=== PATIENT | male | born 1985 | race African-American/Black ===

== ENCOUNTER 2018-08-19 19:01 | Emergency (ER) | payer OTHER ==
[2018-08-19] MEDS ORDERED: CLINDAMYCIN 900 MG/D5W RTU 900 MG/50 ML RTUPB IV ONE (21:02)
[2018-08-19] MEDS ORDERED: DEXAMETHASONE SOD PHOS INJ 10 MG/1 ML VIAL IV ONE (21:04)
--- NOTE | 2018-08-19 21:16 | ER Document Report ---
ED General - General Chief Complaint: Sore Throat Stated Complaint: SORE THROAT Time Seen by Provider: 08/19/18 20:48 Primary Care Provider: ALEX,JUNIOR [Primary Care Provider] - Follow up as needed Information source: Patient TRAVEL OUTSIDE OF THE [place] IN LAST 30 DAYS: No - HPI Patient complains to provider of: SORE THROAT Onset: Yesterday Onset/Duration: Sudden Quality of pain: Fullness, Throbbing Severity: Moderate Associated symptoms: Chills, Fever Exacerbated by: Denies Relieved by: Denies Similar symptoms previously: No Recently seen / treated by doctor: No Notes: 33-year-old -[place] male coming in today with swollen tonsils. Symptoms since yesterday. Having to spit his oral secretions into a emesis bag. - Related Data Allergies/Adverse Reactions: No Known Allergies Allergy (Verified 02/10/16 01:45) Past Medical History - General Information source: Patient - Social History Smoking Status: Never Smoker Frequency of alcohol use: Rare Drug Abuse: Marijuana Family History: Reviewed & Not Pertinent Patient has suicidal ideation: No Patient has homicidal ideation: No Renal/ Medical History: Denies: Hx Peritoneal Dialysis - Immunizations Hx Diphtheria, Pertussis, Tetanus Vaccination: Yes Review of Systems - Review of Systems Notes: Constitutional: No fevers. No chills. EENT: Hurts to swallow, swollen tonsils Cardiovascular: No chest pain. No palpitations. Respiratory: No cough. No shortness of breath. No respiratory distress. Gastrointestinal: No abdominal pain. No nausea, vomiting, or diarrhea. Genitourinary: Atraumatic. No lesions. No pain. No discharge. Musculoskeletal: Atraumatic. No swelling. No deformities. Skin: No rash or lesions. Lymphatic: No swollen lymph nodes. Neurologic: No headache. No syncope. Psychiatric: No suicidal or homicidal ideation. Physical Exam - Vital signs Vitals: Temp Pulse Resp BP Pulse Ox 98.9 F 86 16 138/84 H 97 08/19/18 19:29 08/19/18 19:29 08/19/18 19:29 08/19/18 19:29 08/19/18 19:29 - Notes Notes: General: Well-developed, well-nourished. In no acute distress. Non-toxic appearing. Cardiac: Well-perfused. Regular rate and rhythm. No murmurs, rubs, or gallops. Pulmonary: No respiratory distress. No cyanosis. Bilateral lung fiels are clear to auscultation. Abdominal: Non-distended. Non-rigid. Bowels sounds are present in all four quadrants. No guarding or rebound. HEENT: Head is atraumatic. Conjunctivae not reddened. No tearing. PERRL. EOMI. Orbits atraumatic. No periorbital swelling or erythema. Bilateral tonsils are edematous and erythematous. Almost touching. Patient with muffled voice. Spitting oral secretions into an emesis bag Neck: Supple. No adenopathy. No meningismus. Dermatologic: Warm with good turgor. No rash. Atraumatic. Chest: Atraumatic. No chest wall tenderness to palpation. Musculoskeletal: Moves all extremities well. No range of motion deficits. no muscular or joint tenderness. No paraspinal muscle tenderness. no midline spinal tenderness or step-off. Genitourinary: Examination deferred Neurologic: No gross neurologic deficits. Psychiatric: Normal mood. Course - Re-evaluation Re-evalutation: 08/19/18 21:16 Decadron, clindamycin, and labs ordered. Hoping to be able to send the patient home after some observation. 08/19/18 22:24 Patient is feeling some better. He does still have a slightly muffled voice. It seems to be improving. He is tolerating fluids without any difficulty. His strep test was positive so we went ahead and ordered a 1,200,000 unit single IM dose of Bicillin LA. I will discharge him home on prednisone and pain medicine - Vital Signs Vital signs: Temp Pulse Resp BP Pulse Ox 98.9 F 86 16 138/84 H 97 08/19/18 19:29 08/19/18 19:29 08/19/18 19:29 08/19/18 19:29 08/19/18 19:29 - Laboratory Result Diagrams: 08/19/18 21:21 08/19/18 21:21 Laboratory results interpreted by me: 08/19/18 21:21 WBC 16.7 H Seg Neutrophils % 81.8 H Lymphocytes % 8.2 L Absolute Neutrophils 13.7 H Discharge - Discharge Clinical Impression: Streptococcal tonsillitis Condition: Good Disposition: HOME, SELF-CARE Instructions: Strep Throat ([facility]), Tonsillitis ([facility]) Additional Instructions: Warm salt water gargles or some time is helpful with this type of infection. If you start to experience worsening swelling such that he cannot swallow your own saliva, you need to return to the ED for reevaluation Prescriptions: Hydrocodone/Acetaminophen [Prentice 5-325 Tablet] 1 each PO Q6HP PRN #10 tablet PRN Reason: Prednisone 50 mg PO DAILY #7 tablet [facility]errals: [facility] [Primary Care Provider] - Follow up in 3-5 days
[2018-08-19 21:30] LABS: ABSOLUTE BASOPHILS # (AUTO) 0.1 10^3/uL (0.0-0.2); ABSOLUTE EOSINOPHILS # (AUTO) 0.4 10^3/uL (0.0-0.6); ABSOLUTE LYMPHOCYTES (AUTO) 1.4 10^3/uL (0.5-4.7); ABSOLUTE MONOCYTES (AUTO) 1.2 10^3/uL (0.1-1.4); ABSOLUTE NEUT (AUTO) 13.7 10^3/uL (1.7-8.2); BASOPHILS % (AUTO) 0.4 % (0-2); EOSINOPHILS % (AUTO) 2.5 % (0-6); HEMATOCRIT 42.7 % (37.9-51.0); HEMOGLOBIN 15.1 g/dL (13.5-17.0); LYMPHOCYTES % (AUTO) 8.2 % (13-45); MEAN CORPUSCULAR HGB CONC 35.4 g/dL (32.0-36.0); MEAN CORPUSCULAR VOLUME 93 fl (80-97); MONOCYTES % (AUTO) 7.1 % (3-13); PLATELET COUNT 241 10^3/uL (150-450); RED BLOOD COUNT 4.59 10^6/uL (4.35-5.55); RED CELL DISTRIBUTION WIDTH 12.4 % (11.5-14.0); SEGMENTED NEUTROPHILS % (AUTO) 81.8 % (42-78); TOTAL CELLS COUNTED % (AUTO) 100 %; WHITE BLOOD COUNT 16.7 10^3/uL (4.0-10.5)
[2018-08-19] MEDS ORDERED: OXYCODONE-ACETAMINOPHEN 5-325 MG TABLET PO ONE (21:38)
[2018-08-19 21:46] LABS: ALANINE AMINOTRANSFERASE 37 U/L (21-72); ALBUMIN 4.2 g/dL (3.5-5.0); ALKALINE PHOSPHATASE 70 U/L (38-126); ANION GAP 9 (5-19); ASPARTATE AMINO TRANSFERASE 37 U/L (17-59); BILIRUBIN,DIRECT 0.1 mg/dL (0.0-0.4); BILIRUBIN,TOTAL 0.9 mg/dL (0.2-1.3); BLOOD UREA NITROGEN 9 mg/dL (7-20); CALCIUM 9.2 mg/dL (8.4-10.2); CARBON DIOXIDE 28 mmol/L (22-30); CHLORIDE 104 mmol/L (98-107); GLUCOSE 106 mg/dL (75-110); SODIUM 140.7 mmol/L (137-145); TOTAL PROTEIN 7.1 g/dL (6.3-8.2)
[2018-08-19] MEDS ORDERED: PENICILLIN G BENZATHINE 1.2 MILLION UNIT/2 ML DISP.SYRIN IM ONE (22:06)
[2018-08-19 23:23] VITALS: BP 141/88
== END 2018-08-19 23:22 | disposition home or self-care (01) ==
LOC: ER 19:01
DX: J03.00 Acute streptococcal tonsillitis, unspecified (principal)
CPT/HCPCS: 36415; 87040; 87880; 85025; 87077; 86308; 80053; 87186; J0561; J1100; 96365; 96372; 96375; 99283

== ENCOUNTER 2018-10-20 09:21 | Emergency (ER) | payer OTHER ==
[2018-10-20 09:27] VITALS: BP 136/84
[2018-10-20] MEDS ORDERED: ACETAMINOPHEN 325 MG TABLET PO ONE (09:27)
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
--- NOTE | 2018-10-20 10:13 | RADIOLOGY REPORT (SQ) ---
EXAM DESCRIPTION: HAND RIGHT 3 VIEWS COMPLETED DATE/TIME: 10/20/2018 10:04 am REASON FOR STUDY: hand pain/trauma COMPARISON: None. NUMBER OF VIEWS: Three views right hand. LIMITATIONS: None. FINDINGS: Normal bone density. Fingers are intact. There is fracture through the mid scaphoid. Ac uity indeterminate. There may be some sclerosis present indicating that this is a subacute or chroni c injury. Carpal alignment is anatomic. OTHER: No other significant finding. IMPRESSION: 1. Scaphoid fracture, acuity indeterminate. No carpal malalignment. 2. Remaining bones look intact. TECHNICAL DOCUMENTATION: JOB ID: [id number] Reading location - IP/workstation name: [email or web address]
== END 2018-10-20 10:53 | disposition home or self-care (01) ==
LOC: ER 09:21
DX: S62.001A Unspecified fracture of navicular [scaphoid] bone of right wrist, initial encounter for closed fracture (principal); M79.641 Pain in right hand; M25.531 Pain in right wrist; Y04.0XXA Assault by unarmed brawl or fight, initial encounter
CPT/HCPCS: 99283

== ENCOUNTER 2018-10-21 03:57 | Emergency (ER) | payer OTHER ==
[2018-10-21 04:03] VITALS: BP 138/93
== END 2018-10-21 05:00 | disposition left against medical advice (07) ==
LOC: ER 03:57
DX: Z53.21 Procedure and treatment not carried out due to patient leaving prior to being seen by health care provider (principal)